=== PATIENT | male | born 1975 | race Caucasian/White ===

== ENCOUNTER 2016-05-08 11:53 | Inpatient (IN) | payer SELFPAY ==
--- NOTE | ~2016-05-08 | PA ---
Unit #: [id number] #: [id number] Patient: BRIEN JIM JR [id number] [place] [address] [id number] MR#: [id number] NAME: BRIEN JIM JR ROOM: P131 Age: 40 Sex: M Admission Date: 05/08/2016 : 1975 Date of Assessment: 05/08/2016 Attending Physician: Tanvir Lee M.D. Admitting Physician: Tanvir Lee M.D. Primary Care Physician: Primary Care Physician No PSYCHIATRIC ASSESSMENT IDENTIFYING INFORMATION The patient is a 40-year-old white male admitted to the hospital with increasing alcohol use. INFORMANT(S) Patient. RELIABILITY Good. CHIEF COMPLAINT Got to quit drinking. HISTORY OF PRESENT ILLNESS The patient is a 40-year-old white male who reports no previous history of chemical dependence or other psychiatric treatment. He is admitted reporting increasing alcohol use which has become of concern to himself and his friend. The patient reports that he moved to the [facility] from his home in [place] approximately 45 days ago in hopes of working "[employer] He has been drinking heavily since that time. He does not quantify his amount of alcohol use. The patient denies abuse of other psychoactive substances. He denies current suicidal/homicidal ideation or any psychotic symptoms. He denies any history of complicated substance withdrawal and denies prior chemical dependence or other chemical dependence treatment. PAST PSYCHIATRIC HISTORY None. FAMILY HISTORY The patient denies family history of psychiatric illness. SOCIAL HISTORY The patient reports alcohol use as noted previously. He is currently living with a friend with whom he plans to go into business "[employer]." He reports that he uses an E-cigarette and his alcohol use is as noted previously. MEDICAL HISTORY Noncontributory. MEDICATION HISTORY None. Unit #: [id number] #: [id number] Patient: BRIEN JIM JR ALLERGIES None. MENTAL STATUS EXAM At this time reveals the patient to be a well-developed, well-nourished white male appearing stated age. He is in no apparent physical distress at time of the examination. He is awake, alert, oriented in all spheres. His mood is mildly dysphoric. His affect constricted. Speech is generally relevant and coherent. There are no gross deficits in memory or cognition noted. Intelligence is judged to be in the average range based on fund of knowledge. The patient is cooperative throughout the interview. He is currently reporting no suicidal/homicidal ideation or psychotic features. Judgement and insight appear to be intact. ASSETS AND LIABILITIES Patient's assets, motivation for change. Liabilities, lack of resources. ADMITTING DIAGNOSES Alcohol use disorder. PSYCHIATRIC PLAN/TREATMENT GOALS The patient remains hospitalized for safety and stabilization. We will begin routine detoxification protocol for alcohol and will add p.r.n. Vistaril for anxiety. The patient will participate in appropriate montero and milieu activities. ESTIMATED LENGTH OF STAY Five days. Dictated by... Tanvir Lee M.D. CYNDI/darci TD: 05/08/2016 15:15 JOB #: [id number] PSYCHIATRIC ASSESSMENT X Tanvir Lee MD X PSYCHIATRIC ASSESSMENT
--- NOTE | ~2016-05-08 | HP ---
Unit #: [id number] #: [id number] Patient: BRIEN JIM JR [id number] [place] [address] [id number] MR#: [id number] NAME: BRIEN JIM JR ROOM: P131 Age: 40 Sex: M Admission Date: 05/08/2016 : 1975 Attending Physician: Tanvir Lee M.D. Admitting Physician: Tanvir Lee M.D. Primary Care Physician: Primary Care Physician No HISTORY AND PHYSICAL HISTORY OF PRESENT ILLNESS The patient is here for alcohol detox, has a current ETOH of 0.25. PAST MEDICAL HISTORY None. PAST SURGICAL HISTORY None, although patient cannot answer currently. ALLERGIES None. SOCIAL HISTORY Positive for alcohol. FAMILY HISTORY Noncontributory. REVIEW OF SYSTEMS CONSTITUTIONAL: No fever or chills. HEENT: Denies any sore throat, ear pain or runny nose. CARDIOVASCULAR: Denies chest pain, irregular heart rhythm or palpitations. CHEST: Denies shortness of breath or cough. No hemoptysis. GASTROINTESTINAL: Denies nausea, vomiting, diarrhea or chronic constipation. ENDOCRINE: Denies history of increased thirst or urination. No recent significant weight loss or gain. GENITOURINARY: Denies dysuria, frequency, or hematuria. SKIN: Denies any rashes. HEMATOLOGIC: Denies history of increased bleeding or bruising. MUSCULOSKELETAL: Denies any hot, swollen joints. No generalized muscle pain. NEUROLOGIC: Denies problems with vision or speech. No frequent, severe headaches. No numbness, tingling or weakness in any extremities. Denies loss of bladder or bowel control. CURRENT MEDICATIONS Not available. PHYSICAL EXAMINATION GENERAL: Asleep, abed, intoxicated. VITAL SIGNS: Temperature 98.9, blood pressure 128/81, respirations 18, heart rate 116. Unit #: [id number] #: [id number] Patient: BRIEN JIM JR HEIGHT: 5 feet 11 inches. WEIGHT: 175 pounds. SKIN: Warm and dry without rash or lesion. Bilateral ear piercing. HEENT: Normocephalic. TMs not viewed. Oral and nasal passages clear. Conjunctivae clear. PERRLA. EOMs intact. NECK: Supple without lymphadenopathy or thyromegaly. HEART: Regular rate and rhythm without murmur. LUNGS: Clear. ABDOMEN: Soft, nontender, without masses or hepatosplenomegaly. : Not done. EXTREMITIES: No evidence of cyanosis, clubbing or edema. Moves all without focal deficit. NEUROLOGICAL: Grossly within normal limits. Cranial Nerves: II: Visual bal are intact. III, IV AND : Extraocular movements are intact. Pupils are equal, round and reactive to light. V: Facial sensation is grossly normal. VII: Facial movements and expression are normal. VIII: Auditory acuity grossly intact. IX, X: Uvula is midline. Phonation is normal. XI: Patient shrugs shoulders and turns head normally. XII: Tongue protrudes in the midline. Sensory and Motor Function: Sensory and motor sensation is grossly normal. Motor: moves all extremities well. Coordination: Gait is normal. Deep Tendon Reflexes: Intact. IMPRESSION Psychiatric admission. RECOMMENDATIONS PSYCHIATRIC: Per psychiatrist. MEDICAL: No contraindications to participate in facility's activities. MEDICAL PROGNOSIS Good. MEDICAL CONDITION Stable. Dictated by... Valente Hassan/darci TD: 05/08/2016 22:22 JOB #: [id number] Unit #: [id number] #: [id number] Patient: BRIEN JIM JR HISTORY AND PHYSICAL X Aviva Collier APR X HISTORY AND PHYSICAL
--- NOTE | ~2016-05-08 | DS ---
Unit #: [id number] #: [id number] Patient: BRIEN JIM JR [id number] [place] [address] [id number] MR#: [id number] NAME: BRIEN JIM JR ROOM: P131 Age: 40 Sex: M Admission Date: 05/08/2016 : 1975 Discharge Date: 05/09/2016 Attending Physician: Tanvir Lee M.D. Primary Care Physician: Primary Care Physician No DISCHARGE SUMMARY REASON FOR ADMISSION The patient is a 40-year-old single white male, admitted to the [address] [place] [address] unit with increasing alcohol abuse. HOSPITAL COURSE The patient was admitted to the [address] [place] [address] and placed on routine detoxification protocol for alcohol. Zestril and sertraline were continued. The patient continued to exhibit significant symptoms of withdrawal including elevation of pulse and tremulousness, but exhibited no other signs of withdrawal. On 05/09/2016, the patient requested discharge from the hospital. He denied suicidal ideation at that point. A lengthy discussion of the risks of untreated alcohol were discussed with the patient including the risk of seizures, delirium tremens, and . In spite of this discussion, the patient insisted on discharge and was not felt to meet criteria for involuntary hospitalization. Discharge was ordered on an against medical advice basis. FINAL DIAGNOSES Alcohol use disorder; mood disorder, unspecified; hypertension. DISPOSITION ON DISCHARGE The patient will continue previously prescribed sertraline 200 mg daily for depression, and Zestril 10 mg daily for hypertension, though this physician will provide no prescriptions for these medications. As noted previously, the patient's discharge is against medical advice. The patient having been informed of the risks of untreated alcohol withdrawal as described previously. PROGNOSIS The patient's prognosis is considered guarded. Dictated by... Tanvir Lee M.D. CB/nabeell TD: 05/10/2016 01:57 JOB #: [id number] Unit #: [id number] #: [id number] Patient: BRIEN JIM JR DISCHARGE SUMMARY X Tanvir Lee MD X DISCHARGE SUMMARY
[2016-05-09 11:43] LABS: THYROID STIMULATING HORMONE 1.51 uIU/ml (0.34-5.60)
[2016-05-09 11:50] LABS: FREE THYROXIN (T4) 1.08 ng/dL (0.58-1.64)
[2016-05-09 11:57] LABS: ALBUMIN SERUM 4.6 g/dL (3.5-5.0); ALKALINE PHOSPHATASE 68 U/L (32-92); ALT (SGPT) 58 U/L (10-40); AST (SGOT) 61 U/L (10-42); BILIRUBIN,TOTAL 1.5 mg/dL (0.2-2.0); BLOOD UREA NITROGEN 5 mg/dL (9-23); BUN/CREATININE RATIO 6.25; CALCIUM SERUM 9.6 mg/dL (8.4-10.2); CARBON DIOXIDE 27 mmol/L (22-31); CHLORIDE 101 mmol/L (100-111); CREATININE SERUM 0.8 mg/dL (0.6-1.4); GLOM FILT RATE Estimated ABOVE60 mL/min (>60); GLUCOSE FASTING 158 mg/dL (70-110); POTASSIUM 3.7 mmol/L (3.5-5.1); PROTEIN TOTAL SERUM 7.3 g/dL (6.0-8.3); SODIUM 136 mmol/L (135-145)
[2016-05-09 12:53] LABS: BASOPHIL% 0.7 % (0-2.5); EOSINOPHIL% 0.9 % (0.0-7.0); HEMATOCRIT 47.8 % (38.0-50.0); HEMOGLOBIN 16.1 gm/dL (13.0-16.0); LYMPHOCYTE# 1.2 X10e3 (1.0-3.5); LYMPHOCYTE% 23.5 % (17.0-45.0); MEAN CELL VOLUME 92.3 FL (83-96); MEAN CORPUSCULAR HGB CONC 33.6 g/dL (30-36); MEAN PLATELET VOLUME 9.2 FL (6.5-11.5); MONOCYTE# 0.6 X10e3 (0-1.0); MONOCYTE% 11.2 % (3.0-12.0); NEUTROPHIL# 3.1 X10e3 (1.5-7.1); NEUTROPHIL% 63.7 % (40-75); PLATELET COUNT 161 X10e3 (140-420); RED BLOOD COUNT 5.18 X10e (3.90-5.60); RED CELL DISTRIBUTION WIDTH 12.9 % (11.0-15.5); WHITE BLOOD COUNT 4.9 X10e3 (4.0-10.5)
[2016-05-09 12:57] LABS: DIFF IND NO
== END 2016-05-09 14:30 | disposition left against medical advice (07) | DRG 897 ==
LOC: P1S 11:53
PROVIDERS: Specialist
PROC: HZ2ZZZZ Detoxification Services for Substance Abuse Treatment (ICD-10-PCS; principal; 2016-05-08)
DX: F10.10 Alcohol abuse, uncomplicated (principal); F39 Unspecified mood [affective] disorder; I10 Essential (primary) hypertension
CPT/HCPCS: 80053; 84439; 84443; 85025; 86592